=== PATIENT | male | born 1995 | race Caucasian/White ===

== ENCOUNTER 2025-06-18 18:31 | Inpatient (IN) | payer SELFPAY ==
[~2025-06-18 18:31] MED LIST: Iopamidol 300 61% 100 ML VIAL FS ONE
[2025-06-18] MEDS ORDERED: Ondansetron PF 4 MG/2 ML Vial ONE (19:48)
[2025-06-18] MEDS ORDERED: Ketorolac Tromethamine 30 MG (1 mL) VIAL ONE (19:49)
[2025-06-18 20:07] LABS: #Basophils 0.05 10x3/uL (0.0-0.2); #Eosinophils Less than 0.03 10x3/uL (0.0-0.5); #Monocytes 0.49 10x3/uL (0.0-1.1); #Neutrophils 7.55 10x3/uL (1.5-8.4); %Basophils 0.6 % (0.0-2.0); %Eosinophils 0.1 % (0.0-6.0); %Lymphocytes 6.8 % (18.0-47.0); %Monocytes 5.6 % (0.0-10.0); %Neutrophils 86.4 % (40.0-75.0); Hematocrit 45.6 % (38.8-50.0); Hemoglobin 16.3 g/dL (13.5-17.5); Mean Corpuscular Hemoglobin 31.0 pg (27.0-33.0); Mean Corpuscular Volume 86.7 fL (81.2-95.1); Platelet Count 169 10x3/uL (150-450); Red Blood Cell (RBC) Count 5.26 10x6/uL (4.32-5.72); White Blood Cell (WBC) Count 8.73 10x3/uL (3.5-10.5)
[2025-06-18 20:23] LABS: ALT (SGPT) 24 U/L (Less than 45); AST (SGOT) 25 U/L (11-34); Albumin 4.2 g/dL (3.1-4.5); Alkaline Phosphatase 61 U/L (40-110); Anion Gap 15 mmol/L (10-20); BUN (Urea Nitrogen) 14 mg/dL (8.9-20.6); Bilirubin, Total 3.1 mg/dL (0.3-1.2); Calc. Creatinine Clearance 0 mL/min (70-130); Calcium 9.5 mg/dL (7.8-10.44); Carbon Dioxide 26 mmol/L (22-29); Chloride 101 mmol/L (98-107); Globulin 3.0 g/dL (2.4-3.5); Glucose 136 mg/dL (70-105); Lipase 7 U/L (8-78); Magnesium 1.8 mg/dL (1.6-2.6); Potassium 3.8 mmol/L (3.5-5.1); Sodium 138 mmol/L (136-145)
[2025-06-18 21:20] LABS: Glucose, Urine (Dipstick) Normal (Negative); Leukocyte Negative (Negative); Protein, Urine (Dipstick) 15 mg/dl (Neg-Trace); Specific Gravity, Urine 1.010 (1.005-1.030)
[2025-06-18 22:08] LABS: Bacteria/HPF None Seen HPF (None Seen); CAUTI Indications for Culture Pelvic or flank pain; RBC/HPF 0-3 HPF (0-3); WBC/HPF 0-3 HPF (0-3)
[2025-06-18 22:09] LABS: Urine Culture Reflex No No
[2025-06-19] MEDS ORDERED: Ketorolac Tromethamine 30 MG (1 mL) VIAL ONE ×2 (04:05→09:35)
[2025-06-19] MEDS ORDERED: Acetaminophen 500 MG TAB ONE (04:05)
[2025-06-19] MEDS ORDERED: Rocuronium Bromide 10 MG/ML (10ML VIAL) ONE (08:18)
[2025-06-19] MEDS ORDERED: Ondansetron PF 4 MG/2 ML Vial ONE (08:18)
[2025-06-19] MEDS ORDERED: PROPOFOL 40 ML ONE (08:18)
[2025-06-19] MEDS ORDERED: SUGAMMADEX SODIUM 200 MG/2 ML VIAL ONE (08:18)
[2025-06-19] MEDS ORDERED: Lidocaine 1% PF 5 ML VIAL ONE (08:18)
[2025-06-19] MEDS ORDERED: Bupivacaine HCl 0.5%/Epinephrine 1:200,000/PF 30 ml Vial ONE (08:20)
[2025-06-19] MEDS ORDERED: Ondansetron PF 4 MG/2 ML Vial IVP PRN (10:34)
[2025-06-19] MEDS ORDERED: hydrALAZINE 20 MG/ML VIAL SLOW IVP PRN (10:34)
[2025-06-19] MEDS: HYDROcodone/Acetaminophen 10/325 mg Tablet PO PRN (13:40)
[2025-06-19 14:06] VITALS: BMI 27.1
[2025-06-19] MEDS: Ketorolac Tromethamine 30 MG (1 mL) VIAL IVP SCH (16:41)
[2025-06-19] MEDS: Famotidine 20 MG TAB PO SCH (20:12)
[2025-06-20 04:40] LABS: Hematocrit 35.7 % (38.8-50.0); Hemoglobin 12.7 g/dL (13.5-17.5); Mean Corpuscular Hemoglobin 31.0 pg (27.0-33.0); Mean Corpuscular Volume 87.1 fL (81.2-95.1); Platelet Count 111 10x3/uL (150-450); Red Blood Cell (RBC) Count 4.10 10x6/uL (4.32-5.72); White Blood Cell (WBC) Count 7.58 10x3/uL (3.5-10.5)
[2025-06-20 04:42] LABS: MDiff Complete? YES; Platelet Adequacy Comment Appears Decreased; RBC Morphology Within Normal Limits
[2025-06-21] MEDS: HYDROcodone/Acetaminophen 10/325 mg Tablet PO PRN (00:02)
[2025-06-21 08:48] LABS: #Basophils 0.03 10x3/uL (0.0-0.2); #Eosinophils 0.08 10x3/uL (0.0-0.5); #Monocytes 0.56 10x3/uL (0.0-1.1); #Neutrophils 7.30 10x3/uL (1.5-8.4); %Basophils 0.3 % (0.0-2.0); %Eosinophils 0.9 % (0.0-6.0); %Lymphocytes 11.5 % (18.0-47.0); %Monocytes 6.1 % (0.0-10.0); %Neutrophils 80.1 % (40.0-75.0); Hematocrit 38.6 % (38.8-50.0); Hemoglobin 13.3 g/dL (13.5-17.5); Mean Corpuscular Hemoglobin 30.9 pg (27.0-33.0); Mean Corpuscular Volume 89.8 fL (81.2-95.1); Platelet Count 141 10x3/uL (150-450); Red Blood Cell (RBC) Count 4.30 10x6/uL (4.32-5.72); White Blood Cell (WBC) Count 9.12 10x3/uL (3.5-10.5)
[2025-06-21] MEDS: Acetaminophen 325 MG TAB PO PRN (12:13)
[2025-06-22 03:53] LABS: #Basophils 0.04 10x3/uL (0.0-0.2); #Eosinophils 0.07 10x3/uL (0.0-0.5); #Monocytes 1.29 10x3/uL (0.0-1.1); #Neutrophils 9.29 10x3/uL (1.5-8.4); %Basophils 0.3 % (0.0-2.0); %Eosinophils 0.6 % (0.0-6.0); %Lymphocytes 12.5 % (18.0-47.0); %Monocytes 10.2 % (0.0-10.0); %Neutrophils 73.8 % (40.0-75.0); Hematocrit 36.0 % (38.8-50.0); Hemoglobin 12.9 g/dL (13.5-17.5); Mean Corpuscular Hemoglobin 30.6 pg (27.0-33.0); Mean Corpuscular Volume 85.3 fL (81.2-95.1); Platelet Count 158 10x3/uL (150-450); Red Blood Cell (RBC) Count 4.22 10x6/uL (4.32-5.72); White Blood Cell (WBC) Count 12.59 10x3/uL (3.5-10.5)
[2025-06-22] MEDS ORDERED: Iopamidol 300 61% 100 ML VIAL FS ONE (13:42)
[2025-06-23 05:34] LABS: Hematocrit 42.8 % (38.8-50.0); Hemoglobin 15.1 g/dL (13.5-17.5); Mean Corpuscular Hemoglobin 30.3 pg (27.0-33.0); Mean Corpuscular Volume 85.9 fL (81.2-95.1); Platelet Count 239 10x3/uL (150-450); Red Blood Cell (RBC) Count 4.98 10x6/uL (4.32-5.72); White Blood Cell (WBC) Count 13.71 10x3/uL (3.5-10.5)
[2025-06-23 05:36] LABS: MDiff Complete? YES; Platelet Adequacy Comment Appears Adequate; RBC Morphology Within Normal Limits
[2025-06-23] MEDS: Floranex 1 GM Packet PO SCH (20:08)
[2025-06-24 04:44] LABS: Hematocrit 46.1 % (38.8-50.0); Hemoglobin 16.1 g/dL (13.5-17.5); Mean Corpuscular Hemoglobin 29.8 pg (27.0-33.0); Mean Corpuscular Volume 85.4 fL (81.2-95.1); Platelet Count 322 10x3/uL (150-450); Red Blood Cell (RBC) Count 5.40 10x6/uL (4.32-5.72); White Blood Cell (WBC) Count 12.87 10x3/uL (3.5-10.5)
[2025-06-24 04:47] LABS: MDiff Complete? YES; Platelet Adequacy Comment Appears Adequate; RBC Morphology Within Normal Limits
[2025-06-24 12:58] VITALS: BP 131/85; TEMP 98.6
== END 2025-06-24 16:15 | disposition home or self-care (01) | DRG 399 ==
LOC: CSHERS 18:31 → CSHERHOLD 21:32 → OBSVTOIN 06-19 10:34 → CSHTELE 06-19 13:02
PROVIDERS: ADMIT Surgery; ATTEND Surgery
PROC: 0DTJ4ZZ Resection of Appendix, Percutaneous Endoscopic Approach (ICD-10-PCS; principal; 2025-06-19)
PROC: 3E03329 Introduction of Other Anti-infective into Peripheral Vein, Percutaneous Approach (ICD-10-PCS; 2025-06-24)
DX: K35.211 Acute appendicitis with generalized peritonitis, with perforation and abscess (principal)
CPT/HCPCS: 36415; 74177; 80053; 81001; 83605; 83690; 83735; 85025; 87324; 87449; 88304; 93005; G0378; J1100; J1885; J2270; J2405; J2543; J2704; J3010; J7120; Q9967